=== PATIENT | female | born 1950 | race Caucasian/White ===

== ENCOUNTER 2017-05-19 11:00 | Day surgery (SDC) | payer BC, MEDICARE ==
[2017-05-18 08:37] VITALS: BMI 31.8
[~2017-05-19 11:00] MED LIST: LACTATED RINGERS 1,000 ML IV SCH; LIDOCAINE 1% 20 ML VIAL (10MG/ML) FOR IV START INTRADERMA PRN
[2017-05-19 11:26] VITALS: RESP 16; TEMP 98.5
[2017-05-19] MEDS ORDERED: PROPOFOL 10 MG/ML 20 ML VIAL IV ONE (12:47)
--- NOTE | 2017-05-19 13:03 | P.GSHP ---
History of Present Illness H&P Date: 05/19/17 Chief Complaint: Screening colonoscopy 67 years old female presents for screening colonoscopy. No change in bowel habits. No family or personal history of ulcerative colitis or Crohn's disease. - Review of Systems Comment: All negative except stated in history of present illness Past Medical History Past Medical History: Hyperlipidemia, Hypertension History of Any Multi-Drug Resistant Organisms: None Reported Past Surgical History: Section Past Anesthesia/Blood Transfusion Reactions: No Reported Reaction Smoking Status: Current every day smoker - Past Family History Mother Family Medical History: No Reported History Medications and Allergies Home Medications Medication Instructions Recorded Confirmed Type Atorvastatin [Lipitor] 20 mg PO HS 05/18/17 05/19/17 History Lisinopril [Zestril] 20 mg PO DAILY 05/18/17 05/19/17 History amLODIPine [Norvasc] 10 mg PO DAILY 05/18/17 05/19/17 History Allergies Allergy/AdvReac Type Severity Reaction Status Date / Time No Known Allergies Allergy Verified 05/19/17 11:16 Surgical - Exam Vital Signs Temp Pulse Resp BP Pulse Ox 98.5 F 78 16 120/80 95 05/19/17 11:17 05/19/17 11:17 05/19/17 11:17 05/19/17 11:17 05/19/17 11:17 General: Patient is alert and oriented to time, place and person and cooperative with exam. HEENT: No pallor, no icterus, Chest: Bilateral equal breath sounds present. No wheezes, no crackles. Cardiovascular: Regular rate and rhythm. Abdomen: Soft, nontender, nondistended. Integumentary: No active ulcers or discharge. Neurologic: Cranial nerves II-XII intact. Strength upper and lower extremities 5/5. No focal neurologic deficits. Gait is normal. Psychiatric: No anxiety or psychosis. Assessment and Plan (1) Screening for colon cancer Status: Acute Plan: 1. Informed consent obtained 2. Patient elected to undergo screening colonoscopy with possible biopsy. The risks, benefits and potential complications including bleeding, infection, perforation were discussed and patient elected to undergo the procedure
[2017-05-19] MEDS ORDERED: LACTATED RINGERS 1,000 ML IV ONE (13:25)
--- NOTE | 2017-05-19 13:37 | P.OP ---
Date of Procedure: 05/19/17 Preoperative Diagnosis: Screening colonoscopy Hypertension Hyperlipidemia Obesity BMI 31.8 Postoperative Diagnosis: Same Procedure(s) Performed: Colonoscopy with hot snare polypectomy 2 Implants: NA Anesthesia: GETA Pathology: other Condition: stable Disposition: PACU Indications for Procedure: 67 years old female presents for first screening colonoscopy. Informed consent obtained and she elected to undergo the procedure Operative Findings: 1. Transverse colon polyp 2. Sigmoid colon polyp 3. Sigmoid diverticulosis 4. Internal hemorrhoids Description of Procedure: The patient was brought to the endoscopy suite and placed in lateral decubitus position. IV sedation was given as per anesthesia team. Patient was on continuous vitals and pulse oximetry monitoring throughout the procedure. A timeout was performed to verify correct patient and correct procedure. Perianal examination did not show any external hemorrhoids. Digital rectal examination was performed. No masses or gross blood. A well-lubricated Olympus colonoscope was passed per rectally and was gradually advanced beyond the sigmoid colon, splenic flexure, transverse colon, hepatic flexure and cecum. The ileocecal valve was visualized as well as the appendiceal orifice . The colonoscope was gradually withdrawn inspecting all the mucosal surfaces. Bowel prep was good. No masses, AV malformations noted. Sigmoid diverticulosis noted without any evidence of acute diverticulitis. Two less than 1 cm pedunculated polyps identified in the sigmoid colon and transverse colon which were removed using hot snare polypectomy 2 The scope was gradually withdrawn and retroflexed in the rectum . Grade 1 internal hemorrhoids seen. Total withdrawal time was greater than 6 minutes . Patient tolerated the procedure well and was taken to post anesthesia care unit in stable condition. Recommend repeat colonoscopy in 5 years . Final Pathologic Diagnosis A. COLON, TRANSVERSE, BIOPSY: TWO FRAGMENTS OF ADENOMA. B. COLON, DESCENDING, BIOPSY: TWO FRAGMENTS OF ADENOMA.
[2017-05-19 13:59] VITALS: BP 146/86; PULSE 63
== END 2017-05-19 14:20 | disposition home or self-care (01) ==
LOC: ORWHC2ENDO 11:00
PROVIDERS: ATTEND Surgery
DX: Z12.11 Encounter for screening for malignant neoplasm of colon (principal); D12.3 Benign neoplasm of transverse colon; D12.4 Benign neoplasm of descending colon; K57.30 Diverticulosis of large intestine without perforation or abscess without bleeding; K64.8 Other hemorrhoids; E78.5 Hyperlipidemia, unspecified; I10 Essential (primary) hypertension; E66.9 Obesity, unspecified; Z68.31 Body mass index [BMI] 31.0-31.9, adult; Z79.899 Other long term (current) drug therapy
CPT/HCPCS: 88305; 45385; J2704

== ENCOUNTER → 2017-08-11 | Outpatient (CLI) | payer BC, MEDICARE, OTHER ==
--- NOTE | 2017-08-11 08:24 | US ---
EXAMINATION TYPE: US abdomen complete DATE OF EXAM: 08/11/2017 COMPARISON: NONE CLINICAL HISTORY: R10.13 epigastric pain. EXAM MEASUREMENTS: Liver Length: 14.9 cm Gallbladder Wall: 0.3 cm CBD: 0.4 cm Spleen: 10.1 cm Right Kidney: 12.5 x 4.0 x 6.1 cm Left Kidney: 12.5 x 4.1 x 5.5 cm Pancreas: visualized portions wnl Liver: wnl Gallbladder: no stones seen Evidence for sonographic Juan's sign: No CBD: wnl Spleen: wnl Right Kidney: No hydronephrosis or masses seen Left Kidney: No hydronephrosis or masses seen Upper IVC: wnl Abd Aorta: wnl The liver is homogenous. The intrahepatic portion of the IVC and proximal abdominal aorta are within normal limits. There is no evidence of cholelithiasis. Common bile duct is unremarkable. The visu alized portions of the pancreas are homogenous. The spleen is unremarkable. Kidneys are symmetric a nd free of hydronephrosis. No renal lesions are seen. IMPRESSION: 1. No acute process.
== END | disposition home or self-care (01) ==
LOC: RADUSWWP 07:39
PROVIDERS: ATTEND Family Medicine
DX: R10.13 Epigastric pain (principal)
CPT/HCPCS: 76700

== ENCOUNTER → 2018-07-05 | Outpatient (CLI) | payer BC, MEDICARE ==
--- NOTE | 2018-07-10 08:38 | MM ---
Reason for exam: screening (asymptomatic). History: Patient is postmenopausal. Physical Findings: A clinical breast exam by your physician is recommended on an annual basis and results should be correlated with mammographic findings. MG Screening Mammo w CAD Bilateral CC and MLO view(s) were taken. No prior studies available for comparison. There are scattered fibroglandular densities. There is no discrete abnormality. ASSESSMENT: Negative, BI-RAD 1 RECOMMENDATION: Routine screening mammogram of both breasts in 1 year.
== END | disposition home or self-care (01) ==
LOC: RADMAMWWP 07:53
PROVIDERS: ATTEND Family Medicine
DX: Z12.31 Encounter for screening mammogram for malignant neoplasm of breast (principal)
CPT/HCPCS: 77067

== ENCOUNTER → 2019-02-04 | Outpatient (CLI) | payer MEDICARE, OTHER ==
[2019-02-04 13:32] LABS: HCT 41.1 % (34.0-46.0); HGB 14.1 gm/dL (11.4-16.0); MCH 31.3 pg (25.0-35.0); MCHC 34.2 g/dL (31.0-37.0); MCV 91.6 fL (80.0-100.0); Mean Platelet Volume 7.3; Platelet Count 170 k/uL (150-450); RBC 4.49 m/uL (3.80-5.40); RDW 14.3 % (11.5-15.5); WBC 6.9 k/uL (3.8-10.6)
[2019-02-04 13:46] LABS: Potassium 4.5 mmol/L (3.5-5.1)
== END | disposition home or self-care (01) ==
LOC: LABPAT 11:42
PROVIDERS: ATTEND Surgery
DX: Z01.818 Encounter for other preprocedural examination (principal); I87.2 Venous insufficiency (chronic) (peripheral); I10 Essential (primary) hypertension; Z01.812 Encounter for preprocedural laboratory examination
CPT/HCPCS: 36415; 80051; 85027; 93005

== ENCOUNTER → 2019-07-19 | Outpatient (CLI) | payer MEDICARE, OTHER ==
[2019-07-19 16:21] LABS: African American GFR (CKD) 88.4 (60.0-200.0)
== END | disposition home or self-care (01) ==
LOC: LABWHC1 09:02
PROVIDERS: ATTEND Family Medicine
DX: Z13.9 Encounter for screening, unspecified (principal)
CPT/HCPCS: 36415; 82565; 84520

== ENCOUNTER → 2019-07-24 | Outpatient (CLI) | payer MEDICARE, OTHER ==
--- NOTE | 2019-07-24 10:08 | CT ---
EXAMINATION TYPE: CT abdomen w con DATE OF EXAM: 07/24/2019 HISTORY: RUQ pain CT DLP: 1113.6mGycm Automated Exposure Control for Dose Reduction was Utilized. CONTRAST: CT scan of the abdomen is performed without oral but with IV Contrast, patient injected with 100 mL o f Isovue 300. COMPARISON: Ultrasound abdomen complete August 11, 2017 FINDINGS: LUNG BASES: No significant abnormality is appreciated. LIVER/GB: No CT dense intraluminal gallstones. No abnormal wall thickening or surrounding inflammator y change. Slightly prominent right hepatic lobe. Liver size is upper limits of normal. PANCREAS: No significant abnormality is seen. SPLEEN: No significant abnormality is seen. ADRENALS: No significant abnormality is seen. KIDNEYS: There is simple appearing 3.3 cm cyst anterolaterally mid pole right kidney axial image 39 s eries 5. BOWEL: Evaluation is slightly suboptimal secondary to lack of enteric contrast. No suspicious small o r large bowel dilatation is seen. Oral contrast reaches level of right colon. LYMPH NODES: No greater than 1cm abdominal lymph nodes are appreciated. OSSEOUS STRUCTURES: No significant abnormality is seen. OTHER: Moderate plaque in the abdominal aorta extending into the iliac branch vessels IMPRESSION: No significant acute finding is seen to account for patient's clinical symptoms of right upper quadrant pain.
== END | disposition home or self-care (01) ==
LOC: RADCTMAIN 08:22
PROVIDERS: ATTEND Family Medicine
DX: R10.11 Right upper quadrant pain (principal)
CPT/HCPCS: 74160; Q9967

== ENCOUNTER → 2019-11-13 | Outpatient (CLI) | payer MEDICARE, OTHER ==
--- NOTE | 2019-11-14 13:54 | MM ---
Reason for exam: screening (asymptomatic). Last mammogram was performed 1 year and 4 months ago. History: Patient is postmenopausal. Physical Findings: A clinical breast exam by your physician is recommended on an annual basis and results should be correlated with mammographic findings. MG Screening Mammo w CAD Bilateral CC and MLO view(s) were taken. Prior study comparison: July 05, 2018, bilateral MG screening mammo w CAD. The breast tissue is heterogeneously dense. This may lower the sensitivity of mammography. There is no discrete abnormality. No significant changes when compared with prior studies. ASSESSMENT: Negative, BI-RAD 1 RECOMMENDATION: Routine screening mammogram of both breasts in 1 year.
== END | disposition home or self-care (01) ==
LOC: RADMAMWWP 14:26
PROVIDERS: ATTEND Family Medicine
DX: Z12.31 Encounter for screening mammogram for malignant neoplasm of breast (principal)
CPT/HCPCS: 77067

== ENCOUNTER → 2021-01-05 | Outpatient (CLI) | payer MEDICARE, OTHER ==
--- NOTE | 2021-01-05 12:23 | XR ---
EXAMINATION TYPE: XR shoulder complete LT DATE OF EXAM: 01/05/2021 COMPARISON: NONE HISTORY: Pain TECHNIQUE: Three views are submitted. FINDINGS: The osseous structures are intact. There is no acute fracture or dislocation. AC joint arthropathy.
== END ==
LOC: RADXRMAIN 11:47
PROVIDERS: ATTEND Nurse Practitioner Family
DX: M25.512 Pain in left shoulder (principal)

== ENCOUNTER → 2023-07-24 | Outpatient (CLI) | payer MEDICARE, OTHER ==
--- NOTE | 2023-07-25 20:57 | MM ---
Reason for Exam: Screening (asymptomatic). Last mammogram was performed 3 year(s) and 9 month(s) ago. Patient History: Menarche at age 15. First Full-Term at age 20. Postmenopausal. Risk Values: Heather 5 year model risk: 1.3%. NCI Lifetime model risk: 3.5%. Prior Study Comparison: 07/05/2018 Bilateral Screening Mammogram, [facility]. 11/13/2019 Bilateral Screening Mammogram, [facility]. Tissue Density: There are scattered fibroglandular densities. Findings: Analyzed By CAD. There is no suspicious group of microcalcifications or new suspicious mass in either breast. Overall Assessment: Negative, BI-RAD 1 Management: Screening Mammogram of both breasts in 1 year. . Patient should continue monthly self-breast exams. A clinical breast exam by your physician is recommended on an annual basis. This exam should not preclude additional follow-up of suspicious palpable abnormalities. Note on Heather scores and lifetime risk: 1. A Heather score greater than 3% is considered moderate risk. If this is the case, consider specialist referral to assess eligibility for a risk reducing agent. 2. If overall lifetime risk for the development of breast cancer is 20% or higher, the patient may qualify for future screening with alternating mammogram and breast MRI. Electronically signed and approved by: Radha Zhang M.D. Radiologist
== END | disposition home or self-care (01) ==
LOC: RADMAMWWP 15:32
PROVIDERS: ATTEND Family Medicine
DX: Z12.31 Encounter for screening mammogram for malignant neoplasm of breast (principal); Z78.0 Asymptomatic menopausal state
CPT/HCPCS: 77063; 77067

== ENCOUNTER 2024-03-23 10:04 | Emergency (ER) | payer MEDICARE, OTHER ==
--- NOTE | 2024-03-23 10:29 | ED ---
Skin/Abscess/FB HPI - General Chief complaint: Skin/Abscess/Foreign Body Stated complaint: allergic reaction both eyes Time Seen by Provider: 03/23/24 10:26 Source: patient, RN notes reviewed Mode of arrival: ambulatory Limitations: no limitations - History of Present Illness Initial comments: 74-year-old female presented to the ER with a chief complaint of allergic reaction. Patient reports her cats frequently go outdoors and have allergens on them. She states that she is allergic to those allergens and after petting her cats that she frequently rubs her eyes. She states for the past 2 weeks she has been having periorbital swelling and itchiness. She denies any double blurry vision or pain with extraocular motions. She was seen at a clinic approximately 1 week ago and received steroids. She states steroids have not improved her symptoms. She denies any difficulty breathing, shortness of breath, chest pain, fevers, cough, congestion. Patient also was complaining of a right upper tooth pain. She believes it is about to fall out and an infection may be starting. She has not followed up with a dentist. Patient denies any other complaints. - Related Data Home Medications Medication Instructions Recorded Confirmed amLODIPine [Norvasc] 10 mg PO DAILY 05/18/17 08/06/20 Previous Rx's Medication Instructions Recorded Amoxicillin 500 mg PO Q8H #30 capsule 03/23/24 Allergies Allergy/AdvReac Type Severity Reaction Status Date / Time No Known Allergies Allergy Verified 03/23/24 10:11 Review of Systems ROS Statement: Those systems with pertinent positive or pertinent negative responses have been documented in the HPI. ROS Other: All systems not noted in ROS Statement are negative. Past Medical History Past Medical History: Diabetes Mellitus, Hyperlipidemia, Hypertension History of Any Multi-Drug Resistant Organisms: None Reported Past Surgical History: Section Past Anesthesia/Blood Transfusion Reactions: No Reported Reaction Past Psychological History: No Psychological Hx Reported Smoking Status: Former smoker Past Alcohol Use History: None Reported Past Drug Use History: None Reported - Past Family History Mother Family Medical History: No Reported History General Exam Limitations: no limitations General appearance: alert, in no apparent distress Head exam: Present: atraumatic, normocephalic, normal inspection Eye exam: Present: PERRL, EOMI, periorbital swelling (Left inferior periorbital swelling. Bilateral erythema periorbitally. No tenderness with extraocular movements. No tenderness with palpation of sinuses) Pupils: Present: normal accommodation ENT exam: Present: normal oropharynx (Multiple fractured teeth. Right upper incisor with gumline erythematous. No purulent drainage or abscess present.), TM's normal bilaterally (No mastoid tenderness) Neck exam: Present: normal inspection. Absent: tenderness, meningismus, lymphadenopathy Respiratory exam: Present: normal lung sounds bilaterally. Absent: respiratory distress, wheezes, rales, rhonchi, stridor Cardiovascular Exam: Present: regular rate, normal rhythm, normal heart sounds. Absent: systolic murmur, diastolic murmur, rubs, gallop, clicks Neurological exam: Present: alert, oriented X3, CN II-XII intact Skin exam: Present: warm, dry, intact, normal color. Absent: rash Course Vital Signs 03/23/24 03/23/24 10:08 11:43 Temperature 98.8 F 98.7 F Pulse Rate 83 88 Respiratory 18 16 Rate Blood Pressure 151/80 145/77 O2 Sat by Pulse 97 98 Oximetry Medical Decision Making - Medical Decision Making Was pt. sent in by a medical professional or institution (, PA, [facility], urgent care, hospital, or fdc...) When possible be specific @ -No Did you speak to anyone other than the patient for history (EMS, parent, family, police, friend...)? What history was obtained from this source @ - aiding in HPI Did you review nursing and triage notes (agree or disagree)? Why? @ -I reviewed and agree with nursing and triage notes Were old charts reviewed (outside hosp., previous admission, EMS record, old EKG, old radiological studies, urgent care reports/EKG's, fdc records)? Report findings @ -No old charts were reviewed Differential Diagnosis (chest pain, altered mental status, abdominal pain women, abdominal pain men, vaginal bleeding, weakness, fever, dyspnea, syncope, headache, dizziness, GI bleed, back pain, seizure, CVA, palpatations, mental health, musculoskeletal)? @ -[Allergic reaction, conjunctivitis, sinusitis, anaphylaxis, gingivitis this list is not meant to be all-inclusive EKG interpreted by me (3pts min.). @ -None X-rays interpreted by me (1pt min.). @ -None done CT interpreted by me (1pt min.). @ -None done U/S interpreted by me (1pt. min.). @ -None done What testing was considered but not performed or refused? (CT, X-rays, U/S, labs)? Why? @ -None What meds were considered but not given or refused? Why? @ -None Did you discuss the management of the patient with other professionals (professionals i.e. Dr., PA, [facility], lab, RT, psych nurse, social work administrator, district court reporter, teacher, housing officer, immigration case worker)? Give summary @ -No Was smoking cessation discussed for >3mins.? @ -No Was critical care preformed (if so, how long)? @ -No Were there social determinants of health that impacted care today? How? (Homelessness, low income, unemployed, alcoholism, drug addiction, transportation, low edu. Level, literacy, decrease access to med. care, usp, rehab)? @ -No Was there de-escalation of care discussed even if they declined (Discuss DNR or withdrawal of care, Hospice)? DNR status @ -No What co-morbidities impacted this encounter? (DM, HTN, Smoking, COPD, CAD, Cancer, CVA, ARF, Chemo, Hep., AIDS, mental health diagnosis, sleep apnea, morbid obesity)? @ -None Was patient admitted / discharged? Hospital course, mention meds given and route, prescriptions, significant lab abnormalities, going to OR and other pertinent info. @ -Discharged. 74 year old female presenting to the ER with a chief complaint of allergic reaction. History and physical exam completed. Vitals upon arrival significant for a temperature 98.8, heart rate 83, respiratory rate 18, blood pressure 151/80, oxygen saturation 97% on room air. Patient in no signs of acute distress and nontoxic-appearing. Bilateral periorbital erythema and edema. No conjunctivitis or purulent drainage. No tenderness to palpation of sinuses. Oropharynx open. Right upper incisor with receding gumline and erythematous gumline concerning of infection. No drainable abscess present. Patient received IV Solu-Medrol, Pepcid and Benadryl for allergic reaction. Upon reevaluation, patient resting comfortably in exam room in no signs of acute distress. Patient reports mild improvement of periorbital swelling. She denies any current difficulty breathing. With improvement of symptoms patient stable for discharge and can follow-up outpatient. Amoxicillin prescribed for dental infection. I advised close follow-up with PCP and dentist. Dentist referrals given. I discussed strict return parameters with patient, she verbally expressed understanding. Patient in agreement with care plan. Case discussed with ED attending, Dr. Simeon. Undiagnosed new problem with uncertain prognosis? @ -No Drug Therapy requiring intensive monitoring for toxicity (Heparin, Nitro, Insulin, Cardizem)? @ -No Were any procedures done? @ -No Diagnosis/symptom? @ -Allergic reaction/dental infection Acute, or Chronic, or Acute on Chronic? @ -Acute Uncomplicated (without systemic symptoms) or Complicated (systemic symptoms)? @ -Uncomplicated Side effects of treatment? @ -No Exacerbation, Progression, or Severe Exacerbation? @ -No Poses a threat to life or bodily function? How? (Chest pain, [place], [place], pneumonia, PE, COPD, DKA, ARF, appy, cholecystitis, CVA, Diverticulitis, Homicidal, Suicidal, threat to staff... and all critical care pts) @ -Low likelihood Disposition Clinical Impression: Allergic reaction, Dental cavities, Fractured tooth Disposition: HOME SELF-CARE Condition: Stable Instructions (If sedation given, give patient instructions): Toothache (ED), General Allergic Reaction (ED) Additional Instructions: Please follow-up with primary care physician in the next 3 to 5 days. I also recommend you follow-up with a dentist as soon as possible. Complete full course of amoxicillin. Return to the ER for any new or worsening concerns. Prescriptions: Amoxicillin 500 mg PO Q8H #30 capsule Is patient prescribed a controlled substance at d/c from ED?: No Referrals: Boy Cuenca MD [Primary Care Provider] - 1-2 days Shai Peguero DDS [STAFF PHYSICIAN] - 1-2 days Chani Otero DDS [STAFF PHYSICIAN] - 1-2 days Time of Disposition: 11:27
[2024-03-23] MEDS: diphenhydrAMINE 50 MG/ML 1 ML VIAL IVP STA (10:39)
[2024-03-23] MEDS: methylPREDNISolone SOD SUCCI 125 MG/2 ML VIAL IV STA (10:40)
[2024-03-23] MEDS: FAMOTIDINE 20 MG/2 ML VIAL IV STA (10:40)
[2024-03-23 11:45] VITALS: BP 145/77; PULSE 88; RESP 16; TEMP 98.7
== END 2024-03-23 11:48 | disposition home or self-care (01) ==
LOC: EC 10:04
DX: K03.81 Cracked tooth (principal); J30.81 Allergic rhinitis due to animal (cat) (dog) hair and dander; K02.9 Dental caries, unspecified; Z87.891 Personal history of nicotine dependence
CPT/HCPCS: 99282 ×2; 96374 ×2; 96375 ×3; J1200; J3490; J2919

== ENCOUNTER 2024-03-23 18:07 | Emergency (ER) | payer MEDICARE, OTHER ==
[2024-03-23 18:12] VITALS: TEMP 97.9
--- NOTE | 2024-03-23 19:24 | ED ---
Chest Pain HPI - General Source: patient, family, RN notes reviewed, old records reviewed Mode of arrival: ambulatory Limitations: no limitations <Karlo Bennett - Last Filed: 03/23/24 19:24> <Jay Casarez - Last Filed: 03/24/24 00:08> - General Chief Complaint: Chest Pain Stated Complaint: Allergic reaction, chest pain Time Seen by Provider: 03/23/24 19:15 - History of Present Illness Initial Comments: Quicknote 74-year-old female presenting to the ED with complaints of chest pressure. Patient seen here earlier today due to complaints of allergic reaction with periorbital erythema and itchiness of her eyes. At this time was given Solu- Medrol, Pepcid and Benadryl. Shortly after, reported developing pressure-like sensation in the middle of her chest which did not radiate. Reports that she initially thought that this was secondary to medications however as the day progressed reported that the pressure has remained consistent in nature which worried her prompting presentation to the ED for further evaluation. Patient also notes that she feels some shortness of breath with this as well. (Karlo Bennett) 74-year-old female who is presenting for evaluation of mild dyspnea. No chest pain. Patient had been treated medically for allergic reaction related to an exposure around the eyes. She was also started on amoxicillin. Symptoms are resolved at the time my evaluation. This was approximately 5 hours prior to arrival. (Jay Casarez) - Related Data Home Medications Medication Instructions Recorded Confirmed amLODIPine [Norvasc] 10 mg PO DAILY 05/18/17 08/06/20 Previous Rx's Medication Instructions Recorded Amoxicillin 500 mg PO Q8H #30 capsule 03/23/24 Allergies Allergy/AdvReac Type Severity Reaction Status Date / Time No Known Allergies Allergy Verified 03/23/24 10:11 Review of Systems ROS Other: All systems not noted in ROS Statement are negative. <Karlo Bennett - Last Filed: 03/23/24 19:24> ROS Other: All systems not noted in ROS Statement are negative. <Jay Casarez - Last Filed: 03/24/24 00:08> ROS Statement: Those systems with pertinent positive or pertinent negative responses have been documented in the HPI. Past Medical History Past Medical History: Diabetes Mellitus, Hyperlipidemia, Hypertension History of Any Multi-Drug Resistant Organisms: None Reported Past Surgical History: Section Past Anesthesia/Blood Transfusion Reactions: No Reported Reaction Past Psychological History: No Psychological Hx Reported Smoking Status: Former smoker Past Alcohol Use History: None Reported Past Drug Use History: None Reported - Past Family History Mother Family Medical History: No Reported History <Karlo Bennett - Last Filed: 03/23/24 19:24> General Exam Limitations: no limitations <Karlo Bennett - Last Filed: 03/23/24 19:24> General appearance: alert, in no apparent distress Head exam: Present: atraumatic, normocephalic Eye exam: Present: PERRL, periorbital swelling (Periorbital erythema and edema) ENT exam: Present: normal exam Neck exam: Present: normal inspection. Absent: tenderness, meningismus Respiratory exam: Present: normal lung sounds bilaterally. Absent: respiratory distress, wheezes Cardiovascular Exam: Present: regular rate, normal rhythm GI/Abdominal exam: Present: soft. Absent: distended, tenderness, guarding Extremities exam: Present: normal inspection, normal capillary refill <Jay Casarez - Last Filed: 03/24/24 00:08> - General Exam Comments Initial Comments: Visual Physical Exam Vital signs reviewed General: Well-appearing, nontoxic, no acute distress. Head: Normocephalic, atraumatic Eyes: PERRLA, EOMI ENT: Airway patent Chest: Nonlabored breathing Skin: No visual rash, normal skin tone Neuro: Alert and oriented 3 Musculoskeletal: No gross abnormalities (Karlo Bennett) Course Vital Signs 03/23/24 03/23/24 18:08 22:54 Temperature 97.9 F Pulse Rate 84 74 Respiratory 18 16 Rate Blood Pressure 151/79 140/81 O2 Sat by Pulse 96 97 Oximetry Chest Pain MDM <Karlo Bennett - Last Filed: 03/23/24 19:24> <Jay Casarez - Last Filed: 03/24/24 00:08> - MDM Quicknote portion performed. Signed Karlo Bennett PA-C (Karlo Bennett) Was pt. sent in by a medical professional or institution (Dr. PA, SENIOR CONTROLS TECHNICIAN, urgent care, hospital, or jail...) When possible be specific @ -No Did you speak to anyone other than the patient for history (EMS, parent, family, police, friend...)? What history was obtained from this source @ -No Did you review nursing and triage notes (agree or disagree)? Why? @ -I reviewed and agree with nursing and triage notes Were old charts reviewed (outside hosp., previous admission, EMS record, old EKG, old radiological studies, urgent care reports/EKG's, jail records)? Report findings @ -No old charts were reviewed Differential Dyspnea: Coronary syndrome, arrhythmia, tamponade, asthma, COPD, pulmonary embolism, pneumonia, pneumothorax, pulmonary effusion, anaphylaxis, diabetic ketoacidosis, flailed chest, pulmonary contusion, diaphragmatic rupture, anemia, neuromuscular, this is not meant to be an all-inclusive list. EKG interpreted by me (3pts min.). @ -Sinus rhythm low voltage, rate of 77, [place] interval 169, QRS duration 96, QTc 422, no ST segment elevation. X-rays interpreted by me (1pt min.). @2 view chest x-ray negative for acute cardiopulmonary findings CT interpreted by me (1pt min.). @ -None done U/S interpreted by me (1pt. min.). @ -None done What testing was considered but not performed or refused? (CT, X-rays, U/S, labs)? Why? @ -None What meds were considered but not given or refused? Why? @ -None Did you discuss the management of the patient with other professionals (professionals i.e. , PA, SENIOR CONTROLS TECHNICIAN, lab, RT, psych nurse, geriatric social work professor, development consultant, teacher, disciplinary hearing officer, keycase assembler)? Give summary @ -No Was smoking cessation discussed for >3mins.? @ -No Was critical care preformed (if so, how long)? @ -No Were there social determinants of health that impacted care today? How? (Homelessness, low income, unemployed, alcoholism, drug addiction, transportation, low edu. Level, literacy, decrease access to med. care, shelter, rehab)? @ -No Was there de-escalation of care discussed even if they declined (Discuss DNR or withdrawal of care, Hospice)? DNR status @ -No What co-morbidities impacted this encounter? (DM, HTN, Smoking, COPD, CAD, Cancer, CVA, ARF, Chemo, Hep., AIDS, mental health diagnosis, sleep apnea, morbid obesity)? @ -Diabetes Was patient admitted / discharged? Hospital course, mention meds given and route, prescriptions, significant lab abnormalities, going to OR and other pertinent info. @74-year-old female with an episode of dyspnea. No central chest pain. She describes the dyspnea as tightness in the chest. Resolved at the time my evaluation. EKG is sinus rhythm. Chest x-ray is clear. She has normal CBC with CMP showing a CO2 of 15 and elevated blood glucose at 360. Patient admits to eating a high carbohydrate diet recently as she has been on steroids. Did plan to give fluids and IV insulin to this patient but when reevaluated she was eager for discharge. She was informed of her testing results and that she should monitor her blood glucose closely. I would prefer to get an acetone and a urinalysis but patient is eager to leave. She is not currently on steroids and states she will monitor her blood glucose at home and return with worsening or changing symptoms. Undiagnosed new problem with uncertain prognosis? @ -No Drug Therapy requiring intensive monitoring for toxicity (Heparin, Nitro, Insulin, Cardizem)? @ -No Were any procedures done? @ -No Diagnosis/symptom? @hyperglycemia, dyspnea resolved Acute, or Chronic, or Acute on Chronic? @ -Acute on chronic Uncomplicated (without systemic symptoms) or Complicated (systemic symptoms)? @ -Default Side effects of treatment? @ -No Exacerbation, Progression, or Severe Exacerbation? @ -No Poses a threat to life or bodily function? How? (Chest pain, [place], [place], pneumonia, PE, COPD, DKA, ARF, appy, cholecystitis, CVA, Diverticulitis, Homicidal, Suicidal, threat to staff... and all critical care pts) @ -Low risk at this time (Jay Casarez) Disposition <Karlo Bennett - Last Filed: 03/23/24 19:24> Is patient prescribed a controlled substance at d/c from ED?: No Time of Disposition: 22:46 <Jay Casarez - Last Filed: 03/24/24 00:08> Clinical Impression: Hyperglycemia Disposition: HOME SELF-CARE Condition: Fair Instructions (If sedation given, give patient instructions): Diabetic Hyperglycemia (ED) Additional Instructions: Please monitor your blood sugar closely. Please drink plenty of water. Please return with any worsening or changing symptoms. Referrals: Boy Cuenca MD [Primary Care Provider] - 1-2 days
[2024-03-23 21:16] LABS: Basophils % (A) 0 %; Eosinophils # (A) 0.1 k/uL (0-0.7); Eosinophils % (A) 1 %; HGB 15.3 gm/dL (11.4-16.0); Lymphocytes # (A) 0.9 k/uL (1.0-4.8); Lymphocytes % (A) 13 %; MCH 31.3 pg (25.0-35.0); MCHC 32.5 g/dL (31.0-37.0); MCV 96.3 fL (80.0-100.0); Mean Platelet Volume 8.4; Monocytes # (A) 0.1 k/uL (0-1.0); Monocytes % (A) 2 %; Neutrophils # (A) 5.6 k/uL (1.3-7.7); Neutrophils % (A) 83 %; Platelet Count 133 k/uL (150-450); RBC 4.88 m/uL (3.80-5.40); RDW 13.8 % (11.5-15.5); WBC 6.8 k/uL (3.8-10.6)
[2024-03-23 21:23] LABS: Partial Thromboplastin Time 23.3 sec (22.0-30.0); Prothrombin Time 10.7 sec (10.0-12.5)
[2024-03-23 22:28] LABS: ALT 20 U/L (4-34); African American GFR (CKD) >90 (>60 ml/min/1.73 sqM); Anion Gap 10 mmol/L; Blood Urea Nitrogen 22 mg/dL (7-17); Carbon Dioxide 15 mmol/L (22-30); Chloride 111 mmol/L (98-107); Glucose 361 mg/dL (74-99); Non-African American GFR(CKD) >90 (>60 ml/min/1.73 sqM); Sodium 136 mmol/L (137-145)
[2024-03-23 22:33] LABS: AST 30 U/L (14-36); Albumin 4.4 g/dL (3.5-5.0); Alkaline Phosphatase 90 U/L (38-126); Magnesium 2.3 mg/dL (1.6-2.3); Potassium 4.6 mmol/L (3.5-5.1)
[2024-03-23] MEDS: SODIUM CHLORIDE 0.9% 1,000 ML IV ONE (22:45)
[2024-03-23 23:10] VITALS: BP 140/81; PULSE 74; RESP 16
--- NOTE | 2024-03-23 23:10 | XR ---
EXAMINATION TYPE: XR chest 2V DATE OF EXAM: 03/23/2024 7:32 PM CLINICAL INDICATION:Female, 74 years old with history of Chest Pain; [facility] COMPARISON: None TECHNIQUE: XR chest 2V. Frontal and lateral views of the chest.. FINDINGS: Lines/Tubes/Devices: No indwelling lines are seen. Heart/mediastinum: Heart size is normal. Mediastinum appears normal. Pulmonary vascularity: Not increased, Lungs/Pleura: Lungs appear mildly hyperinflated with mild interstitial coarsening, findings suggestiv e of COPD/emphysema. There is no evidence of pleural effusion, focal consolidation, or pneumothorax. Musculoskeletal: No acute osseous abnormality demonstrated in the limits of the exam. Degenerative c hanges of the spine and shoulders. Other findings: None. IMPRESSION: No acute cardiopulmonary abnormality.
== END 2024-03-23 23:01 | disposition home or self-care (01) ==
LOC: EC 18:07
DX: R07.89 Other chest pain (principal); E11.65 Type 2 diabetes mellitus with hyperglycemia; Z87.891 Personal history of nicotine dependence
CPT/HCPCS: 36415; 71046; 80053; 83735; 84484; 85025; 85610; 85730; 93005; 96360; 99285

== ENCOUNTER → 2024-09-11 | Outpatient (CLI) | payer MEDICARE, OTHER ==
[2024-09-11 15:19] LABS: HCT 46.1 % (37.2-46.3); HGB 15.1 g/dL (12.0-15.0); MCH 30.3 pg (27.0-32.0); MCHC 32.8 g/dL (32.0-37.0); MCV 92.6 FL (80.0-97.0); Mean Platelet Volume 10.4 FL (9.5-12.2); NRBC Per 100 WBC 0 X 10*3/uL (0.00-0.01); Platelet Count 132 X 10*3/uL (140-440); RBC 4.98 X 10*6/uL (4.10-5.20); RDW 13.3 % (11.5-14.5); WBC 6.59 X 10*3/uL (4.50-10.00)
[2024-09-11 15:52] LABS: Appearance,Urine Clear (Clear); Bilirubin,Urine Negative (Negative); Blood,Urine Negative (Negative); Color,Urine Yellow (Yellow); Ketones,Urine Negative (Negative); Nitrite,Urine Negative (Negative); Specific Gravity,Urine 1.018 (1.001-1.030); Urobilinogen,Urine 0.2 E.U./DL
[2024-09-11 15:54] LABS: % Iron Saturation 19.05 (12.00-45.00); ALT 22 U/L (8-44); AST 20 U/L (13-35); Albumin 4.4 g/dL (3.8-4.9); Albumin/Globulin Ratio 2.32 Ratio (1.60-3.17); Alkaline Phosphatase 84 U/L (41-126); BUN/Creat Ratio 31.14 Ratio (12.00-20.00); Blood Urea Nitrogen 21.8 mg/dL (9.0-27.0); Calcium 9.2 mg/dL (8.7-10.3); Carbon Dioxide 21.2 mmol/L (21.6-31.8); Chloride 105 mmol/L (96-109); Globulin 1.9 g/dL (1.6-3.3); Glucose 192 mg/dL (70-110); Iron 68 UG/DL (50-170); Magnesium 2.1 mg/dL (1.5-2.4); Phosphorus 4.6 mg/dL (2.4-5.1); Potassium 4.6 mmol/L (3.5-5.5); Sodium 140 mmol/L (135-145); Total Bilirubin 0.5 mg/dL (0.3-1.2); Total Iron Binding Capacity 357 UG/DL (228-460); Total Protein 6.3 g/dL (6.2-8.2)
[2024-09-11 16:00] LABS: Bacteria,Urine None Seen (None Seen)
[2024-09-11 19:30] LABS: Urine Creatinine 27.9 mg/dL (28.0-217.0)
== END | disposition home or self-care (01) ==
LOC: LABWHC1 11:23
PROVIDERS: ATTEND Internal Medicine Nephrology
DX: N18.1 Chronic kidney disease, stage 1 (principal); D63.1 Anemia in chronic kidney disease; N39.0 Urinary tract infection, site not specified; E55.9 Vitamin D deficiency, unspecified; M10.9 Gout, unspecified; R80.9 Proteinuria, unspecified
CPT/HCPCS: 36415; 80053; 81001; 82043; 82306; 82570; 82728; 83540; 83550; 83735; 83970; 84100; 84550; 85027